=== PATIENT | male | born 1980 | race Caucasian/White ===

== ENCOUNTER 2023-05-06 18:12 | Emergency (ER) | payer OTHER ==
[~2023-05-06] VITALS: Ht 172.7 cm; Wt 81.6 kg
[2023-05-06 18:36] VITALS: BP 117/72; PULSE 80; RESP 20; TEMP 97.8; O2SAT 99
[2023-05-06] MEDS ORDERED: INDO-305 PO (19:24)
[2023-05-06] MEDS ORDERED: PRED20TA5 PO (19:24)
[2023-05-06] MEDS ORDERED: FAMO-90 PO (19:24)
[2023-05-06 20:00] VITALS: BP 117/72; PULSE 80; RESP 20; TEMP 97.8; O2SAT 99
--- NOTE | 2023-05-06 20:00 | NUR ---
Patient discharged with v/s stable. Written and verbal after care instructions given and explained. Patient alert, oriented and verbalized understanding of instructions. Ambulatory with steady gait. All questions addressed prior to discharge. ID band removed. Patient advised to follow up with PMD. Rx of PEPCID, INDOMETHACIN, DELTASONE given. Patient educated on indication of medication including possible reaction and side effects. Opportunity to ask questions provided and answered.
== END 2023-05-06 20:00 | disposition home or self-care (01) ==
LOC: MED 18:12
DX: M10.9 Gout, unspecified (principal); Z79.899 Other long term (current) drug therapy
CPT/HCPCS: 99283